=== PATIENT | female | born 1980 | race Caucasian/White ===

== ENCOUNTER 2018-08-22 08:10 | Inpatient (IN) | payer OTHER ==
[2018-08-22] MEDS ORDERED: ELECTROLYTE-148 SOLN 500 ML IV ONE (09:09)
[2018-08-22] MEDS ORDERED: CITRIC ACID/SODIUM CITRATE 30 ML UNIT-DOSE CUP PO ONE (09:09)
--- NOTE | 2018-08-22 09:15 | HP ---
Past Medical History - Admission Chief Complaint: RLTCS, CHTN History of Present Illness: 38yo @ 39wks by LMP/sono here for scheduled RLTCS Preg c/b: AMA, prior C/S x 2, CHTN on Labetalol BID, obesity. Pt declined permanent sterilization - Past Medical History ...: 3 ...Para: 2 ...Term: 2 ...: 0 ...Spon : 0 ...Induced : 0 ...Multiple Gestation: 0 ... Weeks Gestation by Dates: 39.1 ...EDC by Dates: 08/28/18 Heme/Onc: Yes: Anemia Infectious Disease: No: AIDS, C-Diff, Herpes Zoster, HIV, MRSA, STD's, Tuberculosis, VREF, Other Psych: No: Addictions, Anxiety, Bipolar, Depression, Panic, Psychosis, Schizophrenia, Other Rheumatology: No: Fibromyalgia, Gout, Lupus, Rheumatoid Arthritis, Sarcoidosis, Vasculitis, Other Endocrine: No: Trousdale's Disease, [employer]'s Disease, Diabetes Insipidus, Diabetes Mellitus, Hyperparathyroidism, Hyperthyroidism, Hypothyroidism, Osteopenia, SIADH, Other Dermatology: No: Basal Cell, Cellulitis, Eczema, Melanoma, Psoriasis, Squamous Cell, Other - Past Surgical History Past Surgical History: Yes: Hx Myomectomy: No Hx Transabdominal Cerclage: No - Smoking History Smoking history: Never smoked - Alcohol/Substance Use Hx Alcohol Use: No History of Substance Use: reports: None - Social History Usual Living Arrangement: Yes: With Spouse ADL: Independent History of Recent Travel: No Home Medications - Allergies Allergies/Adverse Reactions: Allergies Allergy/AdvReac Type Severity Reaction Status Date / Time No Known Allergies Allergy Verified 08/12/18 14:48 - Home Medications Home Medications: Ambulatory Orders Aspirin [ASA -] 81 mg PO DAILY 06/13/18 Labetalol HCl [Normodyne -] 200 mg PO DAILY 06/13/18 Vitamins (Sjr) - 1 tab PO DAILY 06/13/18 Physical Exam - Maternity Constitutional: Yes: Well Nourished, No Distress, Calm Eyes: Yes: WNL, Conjunctiva Clear, EOM Intact HENT: Yes: WNL, Atraumatic, Normocephalic Neck: Yes: WNL, Supple, Trachea Midline Cardiovascular: Yes: WNL, Regular Rate and Rhythm Breast(s): Yes: WNL - Abdominal Exam/OB Number of Fetuses: Single Presentation: Vertex Contractions: No Accelerations: Non-Uniform Decelerations: None - Vaginal Exam/OB Vaginal Bleediing: No Speculum Exam: No Amniotic Membrane Status: Intact - Physical Exam Edema: No Assessment/Plan 38yo @ 39.1wks here for scheduled RTLCS Admit to L&D NPO, IVFs Ancef SCDS, Forrest Risk of procedure reviewed, including bleeding, infection, injury to bladder/ bowel/adnexa/vessels/nerves. All questions answered in Somali. Consent signed. Sofia Fernandez MD
[2018-08-22] MEDS ORDERED: ONDANSETRON 4 MG/2 ML VIAL IVPUSH PRN (09:19)
[2018-08-22] MEDS ORDERED: morphine SULFATE/Preservative Free 0.5 MG/ML (1cc Syringe) EP ONE (09:19)
[2018-08-22 09:33] VITALS: BMI 42.0
[2018-08-22] MEDS ORDERED: morphine SULFATE/PF 0.5 MG/ML (2cc Syringe - QUVA) ONE (10:10)
[2018-08-22] MEDS ORDERED: ceFAZolin SODIUM 1 GM VIAL ONE (10:11)
[2018-08-22] MEDS ORDERED: OXYTOCIN 20 UNITS in 0.9% NS 20 UNIT/1,000 ML INFUS.BAG IV ONE (10:17)
[2018-08-22] MEDS ORDERED: OXYTOCIN 10 UNITS/ML VIAL ONE (10:33)
--- NOTE | 2018-08-22 11:44 | OP ---
Operative Note - Note: Operative Date: 08/22/18 Pre-Operative Diagnosis: Prior C/S, 39 week , CHTN Operation: Repeat Low Transverse Findings: VMI, ALEX position. No nuchal. No meconium. Weight 8.15lbs, Apgars 9/9. Normal tubes and ovaries bilaterally Post-Operative Diagnosis: Same as Pre-op Surgeon: Brooke Fernandez Stock Turner: Pedro Vivas Anesthesia: Spinal Estimated Blood Loss (mls): 600 Drains, Volume Out (mls): 50 (clear urine) Operative Report Dictated: Yes
[2018-08-22] MEDS ORDERED: IBUPROFEN 600 MG TABLET (FP) PO PRN (11:48)
[2018-08-22] MEDS ORDERED: METHYLERGONOVINE MALEATE 0.2 MG/1 ML AMP IM PRN (11:48)
[2018-08-22] MEDS ORDERED: IBUPROFEN 800 MG/8 ML IJ IVPB PRN (11:50)
[2018-08-22] MEDS ORDERED: BENZOCAINE 20% 57 GM BOTTLE TP PRN (11:50)
[2018-08-22] MEDS: OXYTOCIN 20 UNITS in 0.9% NS 20 UNIT/1,000 ML INFUS.BAG IV SCH (12:00)
[2018-08-22] MEDS ORDERED: LABETALOL HCL 200 MG TABLET (FP) PO ONE (14:25)
[2018-08-22] MEDS: FERROUS SO4 325 MG TABLET (FP) PO SCH (18:09)
--- NOTE | 2018-08-22 21:40 | OP ---
DATE OF OPERATION: 08/22/2018 PREOPERATIVE DIAGNOSES: Prior section, 39-week , chronic hypertension. POSTOPERATIVE DIAGNOSES: Prior section, 39-week , chronic hypertension. PROCEDURE: Repeat low transverse section. ANESTHESIA: Spinal. INTRAVENOUS FLUIDS: Per anesthesia record. SURGEON: Brooke Fernandez MD [facility] DIRECTOR: NJ Arias ESTIMATED BLOOD LOSS: 600. URINE OUTPUT: Clear urine 50 mL at the end of the procedure. FINDINGS: Viable male , ALEX position, no nuchal, no meconium. Weight 8 pounds 15 ounces. Apgars 9 and 9. Normal tubes and ovaries bilaterally. COMPLICATIONS: None. CONDITION: Stable to recovery room. NATURE OF THE PROCEDURE: After the appropriate consents were signed, patient was taken to the operating room. Spinal anesthesia was administered. The abdomen was then prepped and draped in a normal sterile fashion. A Forrest catheter had been inserted prior to entry into the operating room. A timeout was performed, confirming correct patient and procedure. A Pfannenstiel skin incision was made through the prior incision, carried through to the underlying layers until the fascia was nicked in the midline. Fascia was then extended laterally with the Phipps scissors. The inferior aspect of the fascia was grasped with Fam clamps, tented upwards, and the rectus muscle was dissected off bluntly and with the Phipps scissors. Attention was then paid to the superior aspect which was taken down in a similar fashion. The peritoneum was then entered bluntly. Bladder blade was inserted. Bladder flap was then created with the Metzenbaums and digitally. Bladder blade was re-adjusted. Uterus was then incised in a low transverse fashion. Copious amniotic fluid was noted. The infant's head was delivered without difficulty as were the remaining shoulder and body. The cord was clamped and cut. The was handed off to the awaiting pediatric staff. The placenta was then removed manually. The uterus was cleared of all clot and debris. The uterus was exteriorized. The hysterotomy was closed in 2 layers with a 1-0 Vicryl. There was an adhesion of omentum to the anterior fundal aspect of the uterus. This was suture ligated with a 0 Vicryl. Hemostasis was made at the stump sites. The adhesion was checked and clear to be free of bowel prior to ligation. Uterus was then returned to the abdominal cavity. There was an area centrally in the hysterotomy that had to be reinforced with a 0 Vicryl with good hemostasis. The gutters were cleared of all clot and debris. The fascia was reapproximated with a 0 Vicryl. The subcutaneous tissue was reapproximated with a 3-0 plain. The skin was closed with a 3-0 Vicryl. Bandages were placed. Sponge, needle, lap count was correct x3. Patient did receive 2 g of Ancef at the start of the procedure. She was taken from the operating room to the recovery area in stable condition. MD ANGEL LYN/[id number]
--- NOTE | 2018-08-23 05:03 | PN ---
Post Progress Note - Subjective Subjective: 38 yo status post repeat , seen and evaluated. Doing well. she's lying in bed c/o mild incision pain. Post Day: 1 Type of Delivery: Repeat C/S Vital Signs: Vital Signs Temperature 98.8 F 08/23/18 02:00 Pulse Rate 86 08/23/18 02:00 Respiratory Rate 18 08/23/18 02:00 Blood Pressure 147/83 08/23/18 02:00 O2 Sat by Pulse Oximetry (%) 100 08/22/18 12:30 Breast Exam: Yes: Soft Uterus: Yes: Fundus @ umbilicus Incision: Yes: Dressing dry and intact Abdomen/GI: Yes: Abdomen soft Lochia: Yes: Rubra Lochia, amount: Small Extremities: Yes: Calves non-tender Activity: Other (She's lying in bed) Problem List - Problems (1) Status post repeat low transverse section Code(s): Z98.891 - HISTORY OF UTERINE SCAR FROM PREVIOUS SURGERY Assessment/Plan Status post repeat Stable Ambulation Analgesia as needed Continue post op care
[2018-08-23 07:24] LABS: BASO % 0.4 % (0-2.0); EOS % 0.4 % (0-4.5); HEMATOCRIT 32.1 % (32.4-45.2); HEMOGLOBIN 10.7 GM/dL (10.7-15.3); LYMPH % 6.1 % (8-40); MCH 28.7 pg (25.7-33.7); MCHC 33.4 g/dl (32.0-36.0); MEAN CELL VOLUME 85.8 fl (80-96); MEAN PLT VOLUME 9.7 fl (7.5-11.1); MONO % 10.5 % (3.8-10.2); NEUT % 82.6 % (42.8-82.8); PLATELET COUNT 172 K/MM3 (134-434); RBC 3.74 M/mm3 (3.60-5.2); RDW 15.8 % (11.6-15.6)
[2018-08-23] MEDS: FERROUS SO4 325 MG TABLET (FP) PO SCH ×2 (09:53→17:43)
[2018-08-23] MEDS: LABETALOL HCL 200 MG TABLET (FP) PO SCH ×2 (09:53→22:08)
[2018-08-23] MEDS: PRENATAL VITAMINS W/ FOLIC ACID TABLET (FP) PO SCH (09:53)
[2018-08-23] MEDS ORDERED: BISACODYL 10 MG SUPP.RECT RC PRN (11:48)
[2018-08-23] MEDS: oxyCODONE HCL 5 MG TABLET PO PRN (12:02)
[2018-08-23] MEDS: SIMETHICONE 80 MG TAB.CHEW (FP) PO PRN (12:02)
--- NOTE | 2018-08-23 13:18 | PN ---
HC Provider Note Provider Note: Anesthesia Post-op Pt s/p spinal for c/section Pt found awake and alert Denies n/v, no h/a, no urinary retention, ambulating well, no puritis VSS no apparent anesthesia complications Delvin Lynn.
[2018-08-24] MEDS: ELECTROLYTE-148 SOLN 1,000 ML IV SCH ×2 (03:01→03:02)
[2018-08-24] MEDS: OXYTOCIN 20 UNITS in 0.9% NS 20 UNIT/1,000 ML INFUS.BAG IV SCH (03:02)
--- NOTE | 2018-08-24 07:47 | PN ---
Post Progress Note - Subjective Subjective: Ambulating, breast feeding, tolerating PO, voiding, lochia decreased, no KAT/ vision changes/RUQ pain/Nausea, pain well controlled Type of Delivery: Repeat C/S Vital Signs: Vital Signs Temperature 98.3 F 08/23/18 22:00 Pulse Rate 79 08/23/18 22:00 Respiratory Rate 18 08/23/18 22:00 Blood Pressure 134/86 08/23/18 22:00 O2 Sat by Pulse Oximetry (%) 100 08/22/18 12:30 Breast Exam: Yes: Other (deferred) Uterus: Yes: Fundus Firm Incision: Yes: Sutures intact (closed) Abdomen/GI: Yes: Abdomen soft (appropriately tender) Lochia, amount: Small Extremities: Yes: Calves non-tender Activity: Ambulating - Labs Labs: CBC WBC 12.0 K/mm3 (4.0-10.0) H 08/23/18 06:56 RBC 3.74 M/mm3 (3.60-5.2) 08/23/18 06:56 Hgb 10.7 GM/dL (10.7-15.3) 08/23/18 06:56 Hct 32.1 % (32.4-45.2) L 08/23/18 06:56 MCV 85.8 fl (80-96) 08/23/18 06:56 MCH 28.7 pg (25.7-33.7) 08/23/18 06:56 MCHC 33.4 g/dl (32.0-36.0) 08/23/18 06:56 RDW 15.8 % (11.6-15.6) H 08/23/18 06:56 Plt Count 172 K/MM3 (134-434) 08/23/18 06:56 MPV 9.7 fl (7.5-11.1) 08/23/18 06:56 Absolute Neuts (auto) 9.9 K/mm3 (1.5-8.0) H 08/23/18 06:56 Neutrophils % 82.6 % (42.8-82.8) 08/23/18 06:56 Lymphocytes % 6.1 % (8-40) L D 08/23/18 06:56 Monocytes % 10.5 % (3.8-10.2) H 08/23/18 06:56 Eosinophils % 0.4 % (0-4.5) 08/23/18 06:56 Basophils % 0.4 % (0-2.0) 08/23/18 06:56 Nucleated RBC % 0 % (0-0) 08/23/18 06:56 Assessment/Plan POD # 2 and uncomplicated post-op recovery, CHNT on 200 labetalol BID and BP elevated this morning, patient is asymptomatic -PEC labs -Monitor BP -Adjust antihypertensive accordingly
[2018-08-24] MEDS: FERROUS SO4 325 MG TABLET (FP) PO SCH ×2 (08:53→16:45)
[2018-08-24] MEDS: PRENATAL VITAMINS W/ FOLIC ACID TABLET (FP) PO SCH ×2 (08:56→09:27)
[2018-08-24] MEDS: LABETALOL HCL 100 MG TABLET (FP) PO SCH ×2 (09:02→21:37)
[2018-08-24 09:26] LABS: ALBUMIN 2.4 g/dl (3.4-5.0); BILIRUBIN,TOTAL 0.4 mg/dL (0.2-1); CALCIUM 8.7 mg/dL (8.5-10.1); CREATININE 0.7 mg/dL (0.55-1.3); POTASSIUM 3.7 mmol/L (3.5-5.1); TOT PROT 6.3 g/dl (6.4-8.2)
[2018-08-24] MEDS: oxyCODONE HCL 5 MG TABLET PO PRN ×2 (09:49→21:37)
[2018-08-24] MEDS: SIMETHICONE 80 MG TAB.CHEW (FP) PO PRN ×2 (09:49→21:37)
[2018-08-25 06:53] LABS: BASO % 0.6 % (0-2.0); EOS % 1.7 % (0-4.5); HEMOGLOBIN 9.8 GM/dL (10.7-15.3); MCH 29.2 pg (25.7-33.7); MCHC 33.8 g/dl (32.0-36.0); MEAN CELL VOLUME 86.4 fl (80-96); MEAN PLT VOLUME 9.5 fl (7.5-11.1); MONO % 9.5 % (3.8-10.2); NEUT % 72.2 % (42.8-82.8); PLATELET COUNT 176 K/MM3 (134-434); RBC 3.35 M/mm3 (3.60-5.2); RDW 16.3 % (11.6-15.6); WHITE BLOOD COUNT 8.5 K/mm3 (4.0-10.0)
--- NOTE | 2018-08-25 07:16 | PN ---
Post Progress Note Post Day: 3 Type of Delivery: Repeat C/S Vital Signs: Vital Signs Temperature 99.1 F 08/24/18 21:50 Pulse Rate 76 08/25/18 05:00 Respiratory Rate 20 08/25/18 05:00 Blood Pressure 127/90 08/25/18 05:00 O2 Sat by Pulse Oximetry (%) 100 08/22/18 12:30 Uterus: Yes: Fundus below umbilicus Incision: Yes: Dressing dry and intact, Sutures intact Abdomen/GI: Yes: Abdomen soft, Passing flatus, Tolerating PO Lochia: Yes: Rubra Lochia, amount: Small Extremities: Yes: Calves non-tender Activity: Ambulating (Pain controlled. No KAT, no N/V.) - Labs Labs: CBC WBC 12.0 K/mm3 (4.0-10.0) H 08/23/18 06:56 RBC 3.74 M/mm3 (3.60-5.2) 08/23/18 06:56 Hgb 10.7 GM/dL (10.7-15.3) 08/23/18 06:56 Hct 32.1 % (32.4-45.2) L 08/23/18 06:56 MCV 85.8 fl (80-96) 08/23/18 06:56 MCH 28.7 pg (25.7-33.7) 08/23/18 06:56 MCHC 33.4 g/dl (32.0-36.0) 08/23/18 06:56 RDW 15.8 % (11.6-15.6) H 08/23/18 06:56 Plt Count 172 K/MM3 (134-434) 08/23/18 06:56 MPV 9.7 fl (7.5-11.1) 08/23/18 06:56 Absolute Neuts (auto) 9.9 K/mm3 (1.5-8.0) H 08/23/18 06:56 Neutrophils % 82.6 % (42.8-82.8) 08/23/18 06:56 Lymphocytes % 6.1 % (8-40) L D 08/23/18 06:56 Monocytes % 10.5 % (3.8-10.2) H 08/23/18 06:56 Eosinophils % 0.4 % (0-4.5) 08/23/18 06:56 Basophils % 0.4 % (0-2.0) 08/23/18 06:56 Nucleated RBC % 0 % (0-0) 08/23/18 06:56 Assessment/Plan 38yo s/p RLTCS, POD#3 Routine PP care OOB, ambulate BP controlled on Lab 300 BID Labs reviewed, wnl; neg proteinuria D/C to home today; office follow up in one week for BP check Sofia Fernandez MD
--- NOTE | 2018-08-25 07:56 | DS ---
Physical Examination Vital Signs: Vital Signs Temperature 99.1 F 08/24/18 21:50 Pulse Rate 76 08/25/18 05:00 Respiratory Rate 20 08/25/18 05:00 Blood Pressure 127/90 08/25/18 05:00 O2 Sat by Pulse Oximetry (%) 100 08/22/18 12:30 Constitutional: Yes: Well Nourished, No Distress, Calm Eyes: Yes: WNL, Conjunctiva Clear, EOM Intact HENT: Yes: WNL, Atraumatic, Normocephalic Neck: Yes: WNL, Supple, Trachea Midline Cardiovascular: Yes: WNL, Regular Rate and Rhythm Respiratory: Yes: WNL, Regular, CTA Bilaterally Gastrointestinal: Yes: WNL, Normal Bowel Sounds Musculoskeletal: Yes: WNL Extremities: Yes: WNL Edema: No Integumentary: Yes: WNL Neurological: Yes: WNL, Alert, Oriented ...Motor Strength: WNL Psychiatric: Yes: WNL Labs: CBC, BMP 08/25/18 06:32 08/24/18 08:20 Discharge Summary Reason For Visit: Current Active Problems Status post repeat low transverse section (Acute) Procedures: Principal: [facility] Hospital Course: Patient presented for Repeat C/S, history complicated by CHTN She underwent an uncomplicated procedure POD#2 her blood pressure was elevated, her blood pressure medicine was increased to Labetalol 300 BID On POD#3 her BP was improved and stable. She met all milestones and was discharged home. Sofia Fernandez MD Condition: Stable - Instructions Diet, Activity, Other Instructions: Regular Diet Follow up in one week with Dr. Fernandez for an incision and blood pressure check Referrals: Brooke Fernandez MD [Staff Physician] - Disposition: HOME - Home Medications Comprehensive Discharge Medication List: Ambulatory Orders Labetalol HCl [Normodyne -] 200 mg PO DAILY 06/13/18 Vitamins (Sjr) - 1 tab PO DAILY 06/13/18 Ibuprofen 600 mg PO Q6H PRN #30 tablet 08/24/18 Labetalol HCl [Normodyne -] 300 mg PO BID 30 Days #60 tablet 08/24/18 Oxycodone HCl/Acetaminophen [Percocet 5-325 mg Tablet -] 1 - 2 tab PO Q6H PRN # 20 tab MDD 4 08/24/18
[2018-08-25 09:19] VITALS: BP 140/89; PULSE 73; TEMP 98.2
[2018-08-25] MEDS: PRENATAL VITAMINS W/ FOLIC ACID TABLET (FP) PO SCH (10:03)
[2018-08-25] MEDS: LABETALOL HCL 100 MG TABLET (FP) PO SCH (10:04)
[2018-08-25] MEDS: FERROUS SO4 325 MG TABLET (FP) PO SCH (10:08)
--- NOTE | 2018-08-30 17:13 | PATH ---
Surgical Pathology Report Patient Name: CHA ALBERT [facility]. Rec. #: [id number] /Age/Gender: 1980 (Age: 38) / F Account: [id number] Location: [facility] OBS/FINAL TOUCH UP PAINTER Taken: 08/22/2018 Received: 08/23/2018 Reported: 08/30/2018 Physicians: Brooke Fernandez Specimen(s) Received PLACENTA Clinical History 39.1 weeks' gestation, appendix removed 12 years ago, Final Diagnosis PLACENTA: THIRD TRIMESTER PLACENTA. TRIVASCULAR CORD. MEMBRANES WITH NO DIAGNOSTIC ABNORMALITIES. Electronically Signed Hernando Mims M.D. Gross Description The specimen is received fresh labeled placenta and is a 615 gram, 16.0 x 14.5 x 3.7 cm. placenta with attached membranes and umbilical cord. The attached membranes are yancey, translucent with focal opacities and insert marginally. The umbilical cord measures 32 cm. in length and averages 1.2 cm. in diameter. The cord inserts eccentrically, 3 cm. to the nearest margin. No true knots or strictures are identified. Cut surface of the umbilical cord reveals 3 vessels. The surface is koo blue with moderate fibrin deposition and appropriate caliber vessels. The maternal surface is red-brown with focal defects. Sectioning reveals red-brown, spongy parenchyma. No lesions are identified. Criminal Justice Lawyer sections are submitted in three cassettes as follows: 1- membrane rolls and umbilical cord; 2-3- full thickness sections of placenta. /08/29/2018 [facility]08/29/2018
== END 2018-08-25 13:05 | disposition home or self-care (01) | DRG 540 ==
LOC: JLDR 08:10 → J3W 12:44
PROVIDERS: ADMIT Obstetrics & Gynecology; ATTEND Obstetrics & Gynecology
PROC: 10D00Z1 Extraction of Products of Conception, Low, Open Approach (ICD-10-PCS; principal; 2018-08-22)
DX: O34.211 Maternal care for low transverse scar from previous cesarean delivery (principal); O10.013 Pre-existing essential hypertension complicating pregnancy, third trimester; O99.213 Obesity complicating pregnancy, third trimester; E66.9 Obesity, unspecified; Z3A.39 39 weeks gestation of pregnancy; Z37.0 Single live birth
CPT/HCPCS: 36415; 80053; 85025; 88307-TC

== ENCOUNTER 2020-11-11 16:24 | Emergency (ER) | payer OTHER ==
[2020-11-11 16:38] VITALS: BP 150/93; PULSE 73; TEMP 98.9; BMI 41.3
[2020-11-11] MEDS ORDERED: AMOX TR/POT CLAV 875MG/125MG TABLETS (FP) PO ONE (17:28)
[2020-11-11] MEDS ORDERED: AMOX TR/POT CLAV 875MG/125MG TABLETS (FP) ONE (17:39)
== END 2020-11-11 17:43 | disposition home or self-care (01) ==
LOC: JERFT 16:24 → JER 16:24 → JERFT 17:43
DX: H60.501 Unspecified acute noninfective otitis externa, right ear (principal)
CPT/HCPCS: 99283-25